=== PATIENT | female | born 1945 | race Caucasian/White ===

== ENCOUNTER 2020-03-13 10:24 | Emergency (ER) | payer MEDICARE ==
[~2020-03-13] VITALS: Ht 162.6 cm; Wt 70.3 kg
--- OUTSIDE RECORDS SUMMARY | ~2020-03-13 | XMS | Encounter Summary ---
Demographics + + + | Address | [address] | | | [place] [address] | + + + | Home Phone | | + + + | Preferred Language | Unknown | + + + | Marital Status | Single | + + + | Confucianist Affiliation | Unknown | + + + | Race | White | + + + | Ethnic Group | Not or | + + + Author + + + | Author | [facility] | | | and [place] | + + + | Organization | [facility] | | | and [place] | + + + | Address | Unknown | + + + | Phone | Unavailable | + + + Support + + +---------+ + | Name | Relationship | Address | Phone | + + +---------+ + | Ramon Turner | ECON | Unknown | | + + +---------+ + Care Team Providers + +------+ + | Care High School Foreign Language Teacher Name | Role | Phone | + +------+ + PCP | Unavailable | + +------+ + Encounter Details +--------+ + + + + | Date | Type | Department | Care Team | Description | +--------+ + + + + | 11/23/ | Hospital | [facility] | Kaitlyn Slater | | | 2012 | Encounter | [facility] | MD [place] [address] | | | | | [address] | [place] | | | | [address] [place], | [address] | | | | | [place] [address] | [phone] | | | | | [phone] | | | +--------+ + + + + Social History + +-------+ +--------+------+ | Tobacco Use | Types | Packs/Day | Years | Date | | | | | Used | | + +-------+ +--------+------+ | Never Assessed | | | | | + +-------+ +--------+------+ + + + | Sex Assigned at | Date Recorded | | | | + + + | Not on file | | + + + documented as of this encounter Plan of Treatment Not on filedocumented as of this encounter Visit Diagnoses Not on filedocumented in this encounter"
--- OUTSIDE RECORDS SUMMARY | ~2020-03-13 | XMS | Encounter Summary ---
Demographics + + + | Address | [address] | | | [place] [address] | + + + | Home Phone | | + + + | Preferred Language | Unknown | + + + | Marital Status | Single | + + + | Anabaptist Affiliation | Unknown | + + + | Race | White | + + + | Ethnic Group | Not or | + + + Author + + + | Author | [facility] | | | and [place] | + + + | Organization | [facility] | | [...] Team Providers + +------+ + | Care Brick Picker Name | Role | Phone | + +------+ + PCP | Unavailable | + +------+ + Encounter Details +--------+ + + + + | Date | Type | Department | Care Team | Description | +--------+ + + + + | 12/07/ | Hospital | [facility] | Pito Hastings | | | 2015 | Encounter | [facility] OP | [address] | | | | | [address] [place] | [address] | | | | | [place], [place] | [place] [address] | | | | | [address] | [phone] | | | | | [phone] | | | +--------+ + + + [...]
--- OUTSIDE RECORDS SUMMARY | ~2020-03-13 | XMS | Encounter Summary ---
Demographics + + + | Address | [address] | | | [place] [address] | + + + | Home Phone | | + + + | Preferred Language | Unknown | + + + | Marital Status | Single | + + + | Hinduism Affiliation | Unknown | + + + | Race | White | + + + | Ethnic Group | Not or | + + + Author + + + | Author | [facility] | | | and [place] | + + + | Organization | [facility] | | | and [...] Team Providers + +------+ + | Care Creative/Art Director Name | Role | Phone | + +------+ + PCP | Unavailable | + +------+ + Encounter Details +--------+ + + + + | Date | Type | Department | Care Team | Description | +--------+ + + + + | 01/13/ | Hospital | [facility] | Kaitlyn Slater | | | 2011 | Encounter | [facility]ORY | MD [place] [address] | | | | | [address] [place] | [place] | | | | | [place] | [address] | | | | | [address] | [phone] | | | | | [phone] | | | +--------+ + + + [...]
--- OUTSIDE RECORDS SUMMARY | ~2020-03-13 | XMS | Encounter Summary ---
Demographics + + + | Address | [address] | | | [place] [address] | + + + | Home Phone | | + + + | Preferred Language | Unknown | + + + | Marital Status | Single | + + + | Buddhism Affiliation | Unknown | + + + | Race | White | + + + | Ethnic Group | Not or | + + + Author + + + | Author | [facility] | | | and [place] | + + + | Organization | [facility] | | | [...] Team Providers + +------+ + | Care L D Rn Name | Role | Phone | + +------+ + PCP | Unavailable | + +------+ + Encounter Details +--------+ + + + + | Date | Type | Department | Care Team | Description | +--------+ + + + + | 12/25/ | Hospital | [facility] | Kaitlyn Slater | | | 2013 | Encounter | [facility] | MD [place] [address] | | | | | [address] [place] | [place] | | | | | [place] | [address] | | | | | [address] | [phone] | | | | | [phone] | | | +--------+ + + + [...] Not on filedocumented as of this encounter Procedures + +--------+ + + + | Procedure Name | Priori | Date/Time | Associated Diagnosis | Comments | | | ty | | | | + +--------+ + + + | CBC W/AUTO | Routin | 12/25/2013 | | Results for this | | DIFFERENTIAL | e | 12:01 PM | | procedure are in the | | | | PDT | | results section. | + +--------+ + + + | LIPASE | Routin | 12/25/2013 | | Results for this | | | e | 12:01 PM | | procedure are in the | | | | PDT | | results section. | + +--------+ + + + | COMPREHENSIVE | Routin | 12/25/2013 | | Results for this | | METABOLIC PANEL | e | 12:01 PM | | procedure are in the | | | | PDT | | results section. | + +--------+ + + + documented in this encounter Results CBC w/ Auto Differential (12/25/2013 12:01 PM PDT) + +-------+ + + + | Component | Value | Ref Range | Performed | Pathologist | | | | | At | Signature | + +-------+ + + + | WBC | 8.5 | 4.3 - 10.4 | EXTERNAL | | | | | 1000/mm3 | LAB | | + +-------+ + + + | RBC | 4.04 | 4.12 - 5.30 | EXTERNAL | | | | | mil/mm3 | LAB | | + +-------+ + + + | HGB, | 13.7 | 12.4 - 15.7 | EXTERNAL | | | External | | g/dL | LAB | | + +-------+ + + + | HCT, | 39.3 | 37.7 - 47.0 % | EXTERNAL | | | External | | | LAB | | + +-------+ + + + | MCV | 97 | 82 - 97 fl | EXTERNAL | | | | | | LAB | | + +-------+ + + + | MCH | 33.9 | 27.1 - 32.3 pg | EXTERNAL | | | | | | LAB | | + +-------+ + + + | MCHC | 34.9 | 32.0 - 36.9 | EXTERNAL | | | | | g/dL | LAB | | + +-------+ + + + | RDW-CV | 12.5 | <=17.0 % | EXTERNAL | | | | | | LAB | | + +-------+ + + + | Platelet | 209 | 150 - 450 | EXTERNAL | | | Count | | 1000/mm3 | LAB | | | Plasma | | | | | + +-------+ + + + | MPV | 10.1 | 9.4 - 12.3 FL | EXTERNAL | | | | | | LAB | | + +-------+ + + + | % Segmented | 74.4 | 42.0 - 76.0 % | EXTERNAL | | | | | | LAB | | | Neutrophils | | | | | + +-------+ + + + | LYMPH % | 17 | 29.0 - 49.0 % | EXTERNAL | | | | | | LAB | | + +-------+ + + + | % Monocytes | 8.6 | <=12.0 % | EXTERNAL | | | | | | LAB | | + +-------+ + + + | Absolute | 6.4 | 2.50 - 8.50 | EXTERNAL | | | Neutrophils | | 1000/mm3 | LAB | | + +-------+ + + + | Absolute | 1.4 | 1.00 - 3.80 | EXTERNAL | | | Lymphocytes | | 1000/mm3 | LAB | | + +-------+ + + + | Absolute | 0.7 | <=1.25 1000/mm3 | EXTERNAL | | | Monocytes | | | LAB | | + +-------+ + + + | SLIDE | NO | | EXTERNAL | | | REVIEW | | | LAB | | + +-------+ + + + + + | Specimen | + + | | + + + +---------+ + + | Performing | Address | City/State/Zipcode | Phone Number | | Organization | | | | + +---------+ + + | EXTERNAL LAB | | | | + +---------+ + + Lipase (12/25/2013 12:01 PM PDT) + +-------+ + + + | Component | Value | Ref Range | Performed | Pathologist | | | | | At | Signature | + +-------+ + + + | Lipase | 109 | 73 - 393 U/L | EXTERNAL | | | | | | LAB | | + +-------+ + + + + + | Specimen | + + | | + + + +---------+ + + | Performing | Address | City/State/Zipcode | Phone Number | | Organization | | | | + +---------+ + + | EXTERNAL LAB | | | | + +---------+ + + Comprehensive Metabolic Panel (12/25/2013 12:01 PM PDT) + +-------+ + + + | Component | Value | Ref Range | Performed | Pathologist | | | | | At | Signature | + +-------+ + + + | Sodium | 139 | 132 - 143 | EXTERNAL | | | | | mmol/L | LAB | | + +-------+ + + + | Potassium | 4 | 3.3 - 4.9 | EXTERNAL | | | | | mmol/L | LAB | | + +-------+ + + + | Cl | 100 | 95 - 108 mmol/L | EXTERNAL | | | | | | LAB | | + +-------+ + + + | CO2 | 29 | 23 - 34 mmol/L | EXTERNAL | | | | | | LAB | | + +-------+ + + + | Anion Gap | 10 | 7 - 16 | EXTERNAL | | | | | | LAB | | + +-------+ + + + | Calcium | 10.1 | 8.3 - 10.0 | EXTERNAL | | | | | mg/dL | LAB | | + +-------+ + + + | Glucose | 99 | 70 - 110 mg/dL | EXTERNAL | | | | | | LAB | | + +-------+ + + + | BUN, Bld | 16 | 5 - 26 mg/dL | EXTERNAL | | | | | | LAB | | + +-------+ + + + | Creatinine | 0.8 | 0.6 - 1.3 mg/dL | EXTERNAL | | | | | | LAB | | + +-------+ + + + | BUN/Creatin | 20 | 7.0 - 24.0 | EXTERNAL | | | ine Ratio | | RATIO | LAB | | + +-------+ + + + | GFR | 60 | >=60 | EXTERNAL | | | ESTIMATE | | mL/min/1.73m2 | LAB | | | (REF) | | | | | + +-------+ + + + | Bilirubin, | 0.7 | <=1.2 mg/dL | EXTERNAL | | | Total | | | LAB | | + +-------+ + + + | Protein, | 7.8 | 6.6 - 8.5 g/dL | EXTERNAL | | | Total | | | LAB | | + +-------+ + + + | Albumin | 4 | 3.0 - 4.5 g/dL | EXTERNAL | | | | | | LAB | | + +-------+ + + + | Alkaline | 102 | 33 - 151 U/L | EXTERNAL | | | Phosphatase | | | LAB | | + +-------+ + + + | ALT, | 37 | 18 - 63 U/L | EXTERNAL | | | External | | | LAB | | + +-------+ + + + | AST, | 25 | <=38 U/L | EXTERNAL | | | External | | | LAB | | + +-------+ + + + + + | Specimen | + + | | + + + +---------+ + + | Performing | Address | City/State/Zipcode | Phone Number | | Organization | | | | + +---------+ + + | EXTERNAL LAB | | | | + +---------+ + + documented in this encounter Visit Diagnoses Not on filedocumented in this encounter"
--- OUTSIDE RECORDS SUMMARY | ~2020-03-13 | XMS | Encounter Summary ---
Demographics + + + | Address | [address] | | | [place] [address] | + + + | Home Phone | | + + + | Preferred Language | Unknown | + + + | Marital Status | Single | + + + | Anabaptism Affiliation | Unknown | + + + [...] Team Providers + +------+ + | Care Crime Specialist Name | Role | Phone | + +------+ + PCP | Unavailable | + +------+ + Encounter Details +--------+ + + + + | Date | Type | Department | Care Team | Description | +--------+ + + + + | 12/25/ | Hospital | [facility] | Kaitlyn Slater | | | 2013 | Encounter | [facility] | MD [place] [address] | | | | | [address] | [place] | | | | | [address] [place], | [address] | | | | | [place] [address] | [phone] | | | | | [phone] | | | +--------+ + + + [...]
--- OUTSIDE RECORDS SUMMARY | ~2020-03-13 | XMS | Encounter Summary ---
Demographics + + + | Address | [address] | | | [place] [address] | + + + | Home Phone | | + + + | Preferred Language | Unknown | + + + | Marital Status | Single | + + + | Evangelical Affiliation | Unknown | + + + | Race | White | + + + | Ethnic Group | Not or | + + + Author + + + | Author | [facility] | | | and [place] | + + + | Organization | [facility] | | | [...] Team Providers + +------+ + | Care Knife Setter Assembler Name | Role | Phone | + +------+ + PCP | Unavailable | + +------+ + Encounter Details +--------+ + + + + | Date | Type | Department | Care Team | Description | +--------+ + + + + | 01/28/ | Hospital | [facility] | Kaitlyn Slater | | | 2013 | Encounter | H[facility] XRAY 900 | MD [place] [address] | | | | | [place] | [place] | | | | | [place] | [address] | | | | | [address] | [phone] | | | | | [phone] | | | +--------+ + + + [...]
--- OUTSIDE RECORDS SUMMARY | ~2020-03-13 | XMS | Encounter Summary ---
Demographics + + + | Address | [address] | | | [place] [address] | + + + | Home Phone | | + + + | Preferred Language | Unknown | + + + | Marital Status | Single | + + + | Restorationism Affiliation | Unknown | + + + | Race | White | + + + | Ethnic Group | Not or | + + + Author + + + | Author | [facility] | | | and [place] | + + + | Organization | [facility] | | | [...] Team Providers + +------+ + | Care Ladies Attendant Name | Role | Phone | + +------+ + PCP | Unavailable | + +------+ + Encounter Details +--------+ + + + + | Date | Type | Department | Care Team | Description | +--------+ + + + + | 01/22/ | Hospital | [facility] | Kaitlyn Slater | | | 2013 | Encounter | [facility] | MD [place] [address] | | | | | [address] | [place] | | | | | [address] [place], | [address] | | | | | [place] [address] | [phone] | | | | | [phone] | | | +--------+ + + + [...]
--- OUTSIDE RECORDS SUMMARY | ~2020-03-13 | XMS | Encounter Summary ---
Demographics + + + | Address | [address] | | | [place] [address] | + + + | Home Phone | | + + + | Preferred Language | Unknown | + + + | Marital Status | Single | + + + | Latter Day Affiliation | Unknown | + + + | Race | White | + + + | Ethnic Group | Not or | + + + Author + + + | Author | [facility] | | | and [place] | + + + | Organization | [facility] | | | [...] Team Providers + +------+ + | Care Mold Sander Name | Role | Phone | + +------+ + PCP | Unavailable | + +------+ + Encounter Details +--------+ + + + + | Date | Type | Department | Care Team | Description | +--------+ + + + + | 09/10/ | Hospital | [facility] | Kaitlyn Slater | | | 2014 | Encounter | [facility] | MD [place] [address] | | | | | [address] | [place] | | | | | [address] [place], | [address] | | | | | [place] [address] | [phone] | | | | | [phone] | | | +--------+ + + + [...]
--- OUTSIDE RECORDS SUMMARY | ~2020-03-13 | XMS | Encounter Summary ---
Demographics + + + | Address | [address] | | | [place] [address] | + + + | Home Phone | | + + + | Preferred Language | Unknown | + + + | Marital Status | Single | + + + | Mormonism Affiliation | Unknown | + + + | Race | White | + + + | Ethnic Group | Not or | + + + Author + + + | Author | [facility] | | | and [place] | + + + | Organization | [facility] | | [...] Team Providers + +------+ + | Care Oil Derrick Operator Name | Role | Phone | + +------+ + PCP | Unavailable | + +------+ + Encounter Details +--------+ + + + + | Date | Type | Department | Care Team | Description | +--------+ + + + + | 01/17/ | Hospital | [facility] | Kaitlyn Slater | | | 2012 | Encounter | H[facility]PITAL LAB[facility]ORY | MD [place] [address] | | | | | [address] [place] | [place] | | | | | [place] | [address] | | | | | [address] | [phone] | | | | | [phone] | | | +--------+ + + + [...]
--- OUTSIDE RECORDS SUMMARY | ~2020-03-13 | XMS | Encounter Summary ---
Demographics + + + | Address | [address] | | | [place] [address] | + + + | Home Phone | | + + + | Preferred Language | Unknown | + + + | Marital Status | Single | + + + | Methodist Affiliation | Unknown | + + + | Race | White | + + + | Ethnic Group | Not or | + + + Author + + + | Author | [facility] | | | and [place] | + + + | Organization | [facility] | | [...] Team Providers + +------+ + | Care Storage Consultant Name | Role | Phone | + +------+ + PCP | Unavailable | + +------+ + Encounter Details +--------+ + + + + | Date | Type | Department | Care Team | Description | +--------+ + + + + | 11/23/ | Hospital | [facility] | Pito Hastings | | | 2015 | Encounter | [facility] INTRA OP | MD [address] | | | | | [address] [place] | [address] | | | | | [place], [place] | [place] [address] | | | | | [address] | [phone] | | | | | [phone] | | | +--------+ + + + [...]
--- OUTSIDE RECORDS SUMMARY | ~2020-03-13 | XMS | Encounter Summary ---
Demographics + + + | Address | [address] | | | [place] [address] | + + + | Home Phone | | + + + | Preferred Language | Unknown | + + + | Marital Status | Single | + + + | Shinto Affiliation | Unknown | + + + | Race | White | + + + | Ethnic Group | Not or | + + + Author + + + | Author | [facility] | | | and [place] | + + + | Organization | [facility] | | | [...] Team Providers + +------+ + | Care Jewelry Bearing Maker Name | Role | Phone | + +------+ + PCP | Unavailable | + +------+ + Encounter Details +--------+ + + + + | Date | Type | Department | Care Team | Description | +--------+ + + + + | 12/01/ | Hospital | [facility] | Dwayne Tafoya FNP | | | 2012 | Encounter | [facility] | [address] | | | | | MEDICAL [address] | [place], [place] | | | | | [address] [facility], | [address] | | | | | [place] [address] | [phone] | | | | | [phone] | | | +--------+ + + + [...]
--- OUTSIDE RECORDS SUMMARY | ~2020-03-13 | XMS | Encounter Summary ---
Demographics + + + | Address | [address] | | | [place] [address] | + + + | Home Phone | | + + + | Preferred Language | Unknown | + + + | Marital Status | Single | + + + | Voodoo Affiliation | Unknown | + + + | Race | White | + + + | Ethnic Group | Not or | + + + Author + + + | Author | [facility] | | | and [place] | + + + | Organization | [facility] | | [...] Team Providers + +------+ + | Care Results Technician Name | Role | Phone | + +------+ + PCP | Unavailable | + +------+ + Encounter Details +--------+ + + + + | Date | Type | Department | Care Team | Description | +--------+ + + + + | 01/20/ | Hospital | [facility] | Kaitlyn Slater | | | 2014 | Encounter | [facility] | MD [place] [address] | | | | | [address] | [place] | | | | | [address] [place], | [address] | | | | | [place] [address] | [phone] | | | | | [phone] | | | +--------+ + + + [...]
--- OUTSIDE RECORDS SUMMARY | ~2020-03-13 | XMS | Encounter Summary ---
Demographics + + + | Address | [address] | | | [place] [address] | + + + | Home Phone | | + + + | Preferred Language | Unknown | + + + | Marital Status | Single | + + + | Jehovah'S Witness Affiliation | Unknown | + + + | Race | White | + + + | Ethnic Group | Not or | + + + Author + + + | Author | [facility] | | | and [place] | + + + | Organization | [facility] | | [...] Team Providers + +------+ + | Care Music Critic Name | Role | Phone | + +------+ + PCP | Unavailable | + +------+ + Encounter Details +--------+ + + + + | Date | Type | Department | Care Team | Description | +--------+ + + + + | 09/25/ | Hospital | [facility] | Evie Gama | | | 2012 | Encounter | [facility] | [address] | | | | | [address] [place] | [place] | | | | | [place] | [place], [place] | | | | | [address] | [address] | | | | | [phone] | [phone] | | | | | | | | +--------+ + + + [...]
--- OUTSIDE RECORDS SUMMARY | ~2020-03-13 | XMS | Encounter Summary ---
Demographics + + + | Address | [address] | | | [place] [address] | + + + | Home Phone | | + + + | Preferred Language | Unknown | + + + | Marital Status | Single | + + + | Congregation Affiliation | Unknown | + + + | Race | White | + + + | Ethnic Group | Not or | + + + Author + + + | Author | [facility] | | | and [place] | + + + | Organization | [facility] | | | and [...] Team Providers + +------+ + | Care Planning And Analysis Manager Name | Role | Phone | + +------+ + PCP | Unavailable | + +------+ + Encounter Details +--------+ + + + + | Date | Type | Department | Care Team | Description | +--------+ + + + + | 01/11/ | Hospital | [facility] | Roldan Croft MD | | | 2011 | Encounter | [facility] | [address] | | | | | [address] | [place], [place] | | | | | [address] [place], | [address] | | | | | [place] [address] | | | | | | [phone] | | | +--------+ + + + [...]
--- OUTSIDE RECORDS SUMMARY | ~2020-03-13 | XMS | Clinical Summary ---
Demographics + + + | Address | [address] | | | [place] [address] | + + + | Home Phone | | + + + | Preferred Language | Unknown | + + + | Marital Status | Single | + + + | Tenriism Affiliation | Unknown | + + + | Race | White | + + + | Ethnic Group | Not or | + + + Author + + + | Author | [facility] | | | and [place] | + + + | Organization | [facility] | | [...] Team Providers + +------+ + | Care Linen Tech Name | Role | Phone | + +------+ + PCP | Unavailable | + +------+ + Allergies Not on File Medications Not on file Active Problems Not on file Social History + +-------+ +--------+------+ | Tobacco [...] on file | | + + + Last Filed Vital Signs + + + + + | Vital Sign | Reading | Time Taken | Comments | + + + + + | Blood Pressure | 104/58 | 01/20/2015 1:01 PM | | | | | PDT | | + + + + + | Pulse | 80 | 01/20/2015 1:01 PM | | | | | PDT | | + + + + + | Temperature | 35.9 C (96.6 F) | 01/20/2015 1:01 PM | | | | | PDT | | + + + + + | Respiratory Rate | 18 | 01/20/2015 1:01 PM | | | | | PDT | | + + + + + | Oxygen Saturation | 96% | 01/20/2015 1:01 PM | | | | | PDT | | + + + + + | Inhaled Oxygen | - | - | | | Concentration | | | | + + + + + | Weight | 67.6 kg (149 lb) | 01/20/2015 1:01 PM | | | | | PDT | | + + + + + | Height | 162.6 cm (5' 4") | 01/20/2015 1:01 PM | | | | | PDT | | + + + + + | Body Mass Index | 25.58 | 01/20/2015 1:01 PM | | | | | PDT | | + + + + + Plan of Treatment + + +-------+ + | Health Maintenance | Due Date | Last | Comments | | | | Done | | + + +-------+ + | Vaccine: | | | | | Dtap/Tdap/Td (1 - | 4 | | | | Tdap) | | | | + + +-------+ + | Vaccine: Zoster (1 | | | | | of 2) | 5 | | | + + +-------+ + | Breast Cancer | | | | | Screening | 0 | | | + + +-------+ + | Vaccine: | | | | | Pneumococcal 65+ (1 | 0 | | | | of 1 - PPSV23) | | | | + + +-------+ + | Vaccine: Influenza | | | | | (#1) | 0 | | | + + +-------+ + Results Not on filefrom Last 3 Months
[2020-03-13] MEDS ORDERED: FLUOXETINE HCL20 MG PO (10:43)
[2020-03-13] MEDS ORDERED: LISINOPRIL20 MG PO (10:43)
== END 2020-03-13 12:07 | disposition home or self-care (01) ==
LOC: ED 10:24
DX: S13.4XXA Sprain of ligaments of cervical spine, initial encounter (principal); I10 Essential (primary) hypertension; F32.9 Major depressive disorder, single episode, unspecified; Z79.899 Other long term (current) drug therapy; W19.XXXA Unspecified fall, initial encounter
CPT/HCPCS: 72125; 99284-25

== ENCOUNTER 2021-02-25 11:08 | Day surgery (SDC) | payer MEDICARE ==
[~2021-02-25] VITALS: Ht 162.6 cm; Wt 70.0 kg
[~2021-02-25 11:08] MED LIST: FLUOXETINE HCL20 MG PO; LISINOPRIL20 MG PO
--- NOTE | 2021-02-25 13:41 | NUR ---
02/25/21 1341 Billie Fall 1219 PT ARRIVED IN PACU SLEEPY WITH NO C/O'S. REPOSITIONED TO L SIDE FOR COMFORT. 1225 REPOSITIONED TO BACK AND SITTING UP IN BED. 1230 SIPPING ON JUICE. 1245 GETTING DRESSED. NO C/O'S. 1250 DC INSTRUCTIONS GIVEN. ALL QUESTIONS ANSWERED.
--- NOTE | 2021-03-09 13:54 | PATH ---
[facility] [address], [place] [address] Signed THIS IS AN ADDENDUM REPORT SPECIMEN(S): A BONE MARROW - CORE SPECIMEN(S): B BONE MARROW - ASPIRATION SPECIMEN(S): C FLOW CYTOMETRY, BM EDTA ASP CLINICAL HISTORY: 75-year-old female with chronic leukopenia, macrocytosis and abnormal bone marrow signal on MRI. See attached. D46.9 (myelodysplastic syndrome, unspecified) DIAGNOSIS SUMMARY: A. Peripheral blood - Macrocytosis. B. Bone marrow aspirate smears, clot section and core biopsy: - Slightly hypercellular bone marrow with trilineage hematopoiesis. - Negative for morphologic features of myelodysplastic syndrome (MDS). - Negative for morphologic features of myeloproliferative neoplasm (MPN). - Negative for increase in plasma cells or infiltrative bone marrow process. - Please see diagnostic comment. DIAGNOSTIC COMMENT: The bone marrow core biopsy demonstrates slightly hypercellular bone marrow with progressive maturation. The bone marrow aspirate smears are hypocellular and suboptimal for morphologic evaluation. However, no increase in blasts or dyshematopoiesis is identified. Patient history of leukopenia and Macrocytosis is noted. Correlation with pending cytogenetic studies and MDS FISH will be helpful for further diagnosis. The results are pending and will be reported in an addendum. This case has been reviewed and dictated by Cassandra Landrum M.D.FACP, board certified hematopathologist. NA:vlg:C2NR PERIPHERAL BLOOD: HEMOGRAM ([facility]; [place], [place]; 02/24/2021): WBCs 3.9 K/uL, RBCs 3.84 K/uL, HGB 12.8 g/dL, HCT 38.2%, MCV 99.7 f/L, MCH 33.3 pg, RDW 13.2%, MCHC 33.4 g/dL, PLT 216 K/uL, and MPV 7.9 f/L. DIFFERENTIAL (manual): 54% neutrophils, 34% lymphocytes, 9% monocytes, 3% eosinophils. PATIENT NAME: SHALA PATTERSON PATHOLOGY DATE OF : 45 REPORT #: [id number] PHYSICIAN: GENNA PRESTON PCP: THANH VARGAS MD REPORT IS CONFIDENTIAL AND NOT TO BE RELEASED WITHOUT AUTHORIZATION [facility] [address], [place] [address] Signed Review of peripheral blood smear and CBC data demonstrate that the RBCs are slightly decreased in number and are macrocytic with no anemia present. Mild anisopoikilocytosis is present. No Rouleaux formation is present. The WBCs are slightly decreased in number with normal distribution. The neutrophils show unremarkable morphology. The platelets are normal in number and unremarkable in morphology. BONE MARROW: BONE MARROW ASPIRATES SMEARS AND TOUCH IMPRINTS: The bone marrow aspirate smears are hypocellular with no bone marrow particles present. Scattered hematopoietic elements are seen showing normal progressive hematopoiesis. No increase in blasts is noted. No dyshematopoiesis is identified. No increase in blasts is noted. Rare megakaryocytes are seen. BONE MARROW DIFFERENTIAL (100 CELLS): 2% blasts, 5% promyelocytes, 9% myelocytes, 47% segmented neutrophils, 5% lymphocytes, 5% monocytes, 2% eosinophils, 1% plasma cells, 24% erythroid precursors. BONE MARROW CORE BIOPSY AND CLOT SECTION: The bone marrow core biopsy and clot section demonstrate slightly hypercellular bone marrow for age with an averaging cellularity of 30%. Trilineage hematopoiesis is present with progressive ordinary maturation. There are no lymphoid aggregates, granulomas, or metastatic tumor cells present. The megakaryocytes are scattered and appear normal in number and distribution. The clot section shows rare clusters of hematopoietic elements with similar findings. SPECIAL STAINS: Special stains are performed (with appropriately reactive control) and show the following results: - Iron (aspirate smears): Stainable iron present, negative for ring sideroblasts. - Iron (clot section, block B1): Stainable iron present, negative for ring sideroblasts. - Reticulin stain (core biopsy): Mild increase in bone marrow reticulin fibrosis. IMMUNOHISTOCHEMICAL STAINS: Immunohistochemical stains are performed on block (A1) (with appropriately reactive control) and show the following results: - CD34: Highlights scattered cells with no increase in blasts noted. - CD117: Highlights scattered cells with no increase in blasts noted. - MPO: Highlights myeloid precursors with normal pattern of distribution. - CD71: Highlights erythroid precursors with normal pattern of distribution. PATIENT NAME: SHALA PATTERSON PATHOLOGY DATE OF : 45 REPORT #: [id number] PHYSICIAN: GENNA PATHOLOGY PCP: THANH VARGAS MD REPORT IS CONFIDENTIAL AND NOT TO BE RELEASED WITHOUT AUTHORIZATION [facility] [address], [place] [address] Signed - Factor VIII: Highlights megakaryocytes with normal number and distribution. FLOW CYTOMETRY: Bone marrow aspirate, flow cytometry: Minute population of monoclonal CD5-positive mature B-cell detected (<1%). No increase in blasts (1.4% myeloblasts). Normal myeloid maturation. See Comment. COMMENT: A minute population of CD5 positive kappa-restricted monotypic B-cell is detected (<1%). While this phenotype may be seen with chronic lymphocytic leukemia, the number of monoclonal B-cells is below the 2016 WHO criteria (greater than or equal to 5 K/uL) for a primary diagnosis of chronic lymphocytic leukemia. 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 Clinical and morphologic correlation is recommended. FLOW CYTOMETRY ANALYSIS: FLOW DIFFERENTIAL (% Total CD45 vs. SSC gating): Myeloid 75%; Lymphoid 10%; Monocyte 3%; Dim CD45/Blast: 1.4%. Cell Count: 2.6 x 10*3/uL. POPULATION ANALYSIS: BLASTS: Analysis of the dim CD45 gate demonstrates 1.4% myeloblasts by CD34/CD117. 1.6% hematogones are detected. LYMPHOID CELLS: The lymphocyte gate comprises 10% of total events and includes 82% T-cells with a CD4:CD8 ratio of 2.1:1 and normal fernando T-cell antigen expression. 7% of lymphocytes are B-cells. A minute kappa-restricted B-cell subset is detected (2% of lymphocytes, <1% of total events) expressing CD45 MOD, CD19 MOD, CD20 DIM, CD5 DIM and KAPPA DIM while negative for CD10, CD23 and FMC7. Due to the absence of CD23 expression, select additional antibodies are run to further characterize the Bcells. Expression of CD200 DIM (partial) is noted. The remainders are NK-cells. MYELOID CELLS: The myeloid population comprises 75% of the total events. No aberrant immunophenotypic expression is detected. MONOCYTES: The monocyte population comprises 3% of the total events. Monocytes are not increased. No aberrant immunophenotypic expression is detected. PLASMA CELLS: 0.6% plasma cells are detected in the screening gate neg-dimCD45/CD38. Plasma cells are CD45 dim and positive for CD19. Initial Antibodies Used: KAPPA, LAMBDA, CD20, CD10, CD19, CD23, CD38, FMC7, CD16, CD56, CD8, CD5, CD2, CD4, CD7, CD3, CD14, CD33, CD13, HLADR, CD34, CD117, CD15, CD45. PATIENT NAME: SHALA PATTERSON PATHOLOGY DATE OF : 45 REPORT #: [id number] PHYSICIAN: GENNA PRESTON PCP: THANH VARGAS MD REPORT IS CONFIDENTIAL AND NOT TO BE RELEASED WITHOUT AUTHORIZATION [facility] [address], [place] [address] Signed Additional Antibodies (necessary for further classification of B lymphocytes): CD200. Total Antibodies Used: 25. JNB GROSS DESCRIPTION: Two specimens are received in two containers, labeled "CC." A. The specimen, labeled "CC, core," is received in formalin and consists of one cylindrical bone core fragment measuring 0.3 cm in diameter and 2.6 cm in length. The specimen is entirely submitted in cassette (A1) following decalcification in Immunocal. B. The specimen, labeled "CC, clot," is received in formalin and consists of thickened clot material measuring 2.3 x 1.8 x 0.5 cm in aggregate. The specimen is filtered and entirely submitted in cassette (B1). Bone marrow inventory also includes: Two peripheral smears, one EDTA tube bone marrow, two heparin tubes (one bone marrow, one peripheral). AT (under the direct supervision of a pathologist) The Gross Description was prepared using a voice recognition system. The report was reviewed for accuracy; however, sound-alike word errors, addition and/or deletions may occur. If there is any question about this report, please contact Client Services. ADDITIONAL NOTES: Immunohistochemical and/or in situ hybridization studies were performed on this case with the appropriate positive controls that react as expected. This test was developed and its performance characteristics determined by [facility]. It has not been cleared or approved by the U.S. Food and Drug Administration. The FDA has determined that such clearance or approval is not necessary. This test is used for clinical purposes. It should not be regarded as investigational or for research. [facility] is certified under the Clinical Laboratory Improvement Amendments of 1988 (CLIA) as qualified to perform high complexity clinical laboratory testing. Immunohistochemical and/or in situ hybridization studies were performed on this case with the appropriate positive controls that react as expected. This test was developed and its performance characteristics determined by [facility]. It has not been cleared or approved by the U.S. Food and Drug Administration. The FDA has determined that PATIENT NAME: SHALA PATTERSON PATHOLOGY DATE OF : 45 REPORT #: [id number] PHYSICIAN: GENNA PATHOLOGY PCP: THANH VARGAS MD REPORT IS CONFIDENTIAL AND NOT TO BE RELEASED WITHOUT AUTHORIZATION [facility] [address] [place] [address] Signed such clearance or approval is not necessary. This test is used for clinical purposes. It should not be regarded as investigational or for research. [facility] is certified under the Clinical Laboratory Improvement Amendments of 1988 (CLIA) as qualified to perform high complexity clinical laboratory testing. In this case, certain antibodies were performed by both immunohistochemistry and flow cytometry analysis because flow cytometry analysis did not fully explain all the light microscopic findings. Immunohistochemistry aided in the analysis. Both methods are deemed medically necessary in this case. PERFORMING LABORATORY: The technical component was performed by [facility], [address] [place] [address] (Mechanic Senior: Martell Powell D.O.; CLIA#: [id number]. Professional interpretation was performed by [facility], [facility], [address] [place] [address] (CLIA#: [id number]). The technical component was performed by [facility], [address] [place] [address] (Mechanic Senior: Martell Powell D.O.; CLIA#: [id number]). [facility], [address] [place] [address] (CLIA#: [id number]) IMAGES: A: [id number] A: [id number] FINAL DIAGNOSIS PERFORMED BY: Cassandra Landrum MD, FACP, Feb 26 2021 12:27PM SPECIMEN SOURCE: A. FISH Analysis, MDS FISH, BM EDTA CLINICAL HISTORY: 75-year-old female with chronic leukopenia, macrocytosis and abnormal bone marrow signal on MRI. See attached. D46.9 (myelodysplastic syndrome, unspecified) FISH (fluorescence in situ hybridization) RESULT: Not Detected INTERPRETATION: 5q deletion/monosomy 5: Not detected. 7q deletion/monosomy 7: Not detected. Trisomy 8: Not detected. 20q deletion: Not detected. PATIENT NAME: SHALA PATTERSON PATHOLOGY DATE OF : 45 REPORT #: [id number] PHYSICIAN: GENNA PATHOLOGY PCP: THANH VARGAS MD REPORT IS CONFIDENTIAL AND NOT TO BE RELEASED WITHOUT AUTHORIZATION [facility] [address] [place] [address] [place], [place] [address] Signed KMT2A (MLL) rearrangement: Not detected. Fluorescence in situ hybridization (FISH) analysis was performed using a specific set of probes for myelodysplastic syndrome. Counts for all probe signals were within the normal reference range. This finding represents a NORMAL result. FISH should be interpreted within the context of a full cytogenetic analysis and hematologic evaluation. ISCN: Probe Set Detail: EGR1/E4J592: nuc karlos 5p15.31(H2F474p9), 5q31(EGR1x2)[200] A0N680/CEP7: nuc karlos 7q31(W7C175p4),7q11.2q11.21(CEP7x2)[200] CEP8: nuc karlos 8q11.1q11.21(CEP8x2)[200] E57E861: nuc karlos 20q12(Z31Q642b7)[200] KMT2A (MLL): nuc karlos 11q23(5'KMT2A,3'KMT2A)x2(5'KMT2A con 3'QGE7Cp4)[200] References: Gaye Reeder (2013) Hematology Am Soc Hematol Educ Program 2013:504-10. PMID [id number] Yuly Phan and Brady Eller (2011) Hematology 16(3):131-8. PMID: 79564490 FISH Analysis Summary: Nuclei Scored: 200 Scoring Method: Manual; CPT Code 65680 Number of Probe units: 4 Multiplex Cells analyzed: Interphase Probe sets: Chrom 8: PATRICK 8, Chrom 20: X80J274, Chrom 5: EGR1, Chrom 5: F3S840, Chrom 7: CEN7, Chrom 7: B1V0894, Chrom 11: KMT2A (MLL) 3', Chrom 11: KMT2A (MLL) 5 ADDITIONAL NOTES: This test was developed and its performance characteristics determined by [facility] [employer] It has not been cleared or approved by the US Food and Drug Administration. The [employer] DNA probe vendor for this study was [employer]. PERFORMING LABORATORY: The technical component of the FISH testing was performed by [facility], [address] [place], [place] [address] [address] (Mechanic Senior: Martell Powell D.O.; CLIA#: [id number]). FINAL DIAGNOSIS PERFORMED BY: Janis Dukes MD, Pathologist Mar 03 2021 2:56PM REASON FOR ADDENDUM: To add results of additional testing. To add results of additional testing. PATIENT NAME: SHALA PATTERSON PATHOLOGY DATE OF : 45 REPORT #: [id number] PHYSICIAN: GENNA PATHOLOGY PCP: THANH VARGAS MD REPORT IS CONFIDENTIAL AND NOT TO BE RELEASED WITHOUT AUTHORIZATION [address] [address] Signed Bone marrow aspirate, cytogenetics oncology chromosome analysis: Karyotype: 46,XX,del(9)(q13q22)[2]/46,XX[19] Interpretation: ABNORMAL FEMALE KARYOTYPE Cytogenetic analysis shows an abnormal female karyotype. 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 Nineteen remaining cells show a normal karyotype. Deletion of the long arm of chromosome 9, del(9q), as a sole chromosome abnormality is typically associated with myeloid neoplasms, such as myelodysplastic syndrome (MDS), and usually confers a relatively good prognosis (Yara Gomez et al: New insights into the prognostic impact of the karyotype in MDS and correlation with subtypes: evidence from a core dataset of 2124 patients. Blood 2007;110:2734-0747). These results should be interpreted in the context of other clinical and hematologic findings. Please note this is the minimal number of cells required to define a "clone." Future studies should determine the significance, if any, of this change. Recommendation: Monitoring by cytogenetics, FISH and/or molecular studies is recommended. Comments: Standard cytogenetic analysis may not detect subtle submicroscopic rearrangements and may not include metaphases from abnormal cell populations with low mitotic rates or present in low levels. Test Detail: Metaphases Counted: 21 Metaphases Analyzed: 21 Metaphases Karyotyped: 4 Culture Type: 24EB, 48EB Banding Technique: GTG Banding Resolution: 400 CPT Codes: 05043, 22208, 47228*, 08778 *Professional interpretation service generally billed directly to carriers by [facility]. The Technical Component Processing and Analysis of this test was completed at [facility] [address] / [address] / [phone] / CLIA #[id number] / Mechanic Senior(s): Iam Copeland M.D.. The Professional Component of this test was completed at [facility] [place], [address] [place], [place] / [address] / [phone] / CLIA #[id number] / Mechanic Senior(s): Froylan Snowden, Ph.D. (Accession / Case No: [id number] / [id number]). The performance characteristics of this test have been PATIENT NAME: SHALA PATTERSON PATHOLOGY DATE OF : 45 REPORT #: [id number] PHYSICIAN: GENNA PRESTON PCP: THANH VARGAS MD REPORT IS CONFIDENTIAL AND NOT TO BE RELEASED WITHOUT AUTHORIZATION [address] [address] Signed determined by the performing laboratory. This test has not been approved by the FDA. The FDA has determined such clearance or approval is not necessary. This laboratory is CLIA certified to perform high complexity clinical testing. Images that may be included within this report are contracts representative of the patient but not all testing in its entirety and should not be used to render a result. The CPT codes provided with our test descriptions are based on AMA guidelines and are for informational purposes only. Correct CPT coding is the sole responsibility of the billing alliance party. Please direct any questions regarding coding to the payer being billed. Diagnostician: Janis Dukes MD Pathologist Diagnostician: Cassandra Landrum MD, FACP Pathologist Electronically Signed 03/09/2021 Copies: ~ PATIENT NAME: SHALA PATTERSON PATHOLOGY DATE OF : 45 REPORT #: [id number] PHYSICIAN: GENNA PATHOLOGY PCP: THANH VARGAS MD REPORT IS CONFIDENTIAL AND NOT TO BE RELEASED WITHOUT AUTHORIZATION
== END 2021-02-25 12:50 | disposition home or self-care (01) ==
LOC: OPS 11:08 → DS 11:11 → OPS 12:00
PROVIDERS: ATTEND Specialist
PROC: 07DR3ZX Extraction of Iliac Bone Marrow, Percutaneous Approach, Diagnostic (ICD-10-PCS; principal; 2021-02-25 12:00)
DX: D72.819 Decreased white blood cell count, unspecified (principal); D75.89 Other specified diseases of blood and blood-forming organs; Z20.822 Contact with and (suspected) exposure to COVID-19
CPT/HCPCS: 88184; 88185; 88305; 88311; 88313; 88341; 88342; 88377; 99153; G0500; J2250; J3010

== ENCOUNTER 2023-05-31 07:44 | Emergency (ER) | payer MEDICARE ==
[2023-05-31 08:25] LABS: BILIRUBIN, URINE NEGATIVE (negative); BLOOD/HGB, URINE MODERATE (Negative); KETONE, URINE TRACE (Negative); LEUK ESTERASE, URINE TRACE (negative); NITRITE, URINE NEGATIVE (negative); PH, URINE 5.5 (5-7)
[2023-05-31 08:32] LABS: BASOPHILS 0.5 % (0-2); EOSINOPHILS 2.8 % (0-6); HEMATOCRIT 39.3 % (35.0-50.0); HEMOGLOBIN 13.1 g/dL (12.0-18.0); MCH 33.2 (27-36); MCHC 33.3 g/dl (30-36); MCV 99.5 fl (81-99); MONOCYTES 10.2 % (0-12); NEUTROPHILS 48.5 % (39-80); PLATELET COUNT 223 K/uL (140-440); RBC 3.95 M/ul (4.3-5.7); RDW 13.4 (10.5-15.0)
[2023-05-31 08:37] LABS: EPITHELIAL CELLS, URINE SQUAMOUS 1+ /lpf (0-1+); REFLEX CULTURE, URINE No (No); WHITE BLOOD CELLS, URINE 0-1 /HPF (0-5)
[2023-05-31 08:38] LABS: CASTS, URINE HYALINE 1+ \\lpf
[2023-05-31 08:44] LABS: ALBUMIN 4.2 g/dL (3.4-5.0); ALBUMIN/GLOBULIN RATIO 1.08 (1.1-2.4); ANION GAP 13.4 (7-21); BILIRUBIN, TOTAL 0.6 ng/dL (0.2-1.0); BUN/CREATININE RATIO 13.58 (6.0-28.6); CALCIUM 9.6 mg/dL (8.5-10.1); CREATININE, SERUM 0.81 mg/dL (0.55-1.02); POTASSIUM 3.4 mmol/L (3.5-5.1); PROTEIN, TOTAL 8.1 g/dL (6.4-8.2)
[2023-05-31] MEDS ORDERED: SUCRALFATE1 GM/10 ML PO (10:11)
[2023-05-31 10:27] VITALS: BP 136/75
== END 2023-05-31 10:23 | disposition home or self-care (01) ==
LOC: ED 07:44
PROVIDERS: Emergency Medicine
DX: K44.9 Diaphragmatic hernia without obstruction or gangrene (principal); R19.7 Diarrhea, unspecified; N28.9 Disorder of kidney and ureter, unspecified; I10 Essential (primary) hypertension; F32.A Depression, unspecified; Z79.899 Other long term (current) drug therapy
CPT/HCPCS: 36415; 74177; 80053; 81001; 83690; 85025; Q9967

== ENCOUNTER 2024-07-18 19:07 | Emergency (ER) | payer OTHER, MEDICARE ==
[~2024-07-18] VITALS: Ht 162.6 cm; Wt 70.0 kg
[~2024-07-18 19:07] MED LIST changes: +SUCRALFATE1 GM/10 ML PO
[2024-07-18] MEDS ORDERED: DULOXETINE HCL20 MG PO (20:07)
[2024-07-18] MEDS ORDERED: LISINOPRIL20 MG PO (20:07)
[2024-07-18] MEDS ORDERED: ALENDRONATE SOD70 MG PO (20:08)
[2024-07-18] MEDS ORDERED: HYDROCODON-ACE1 EA10 PO (20:27)
[2024-07-18] MEDS ORDERED: HYDROCODONE BIT/ACETAMINOPHEN 5/325 MG 1 TAB HOME.PACK PO ONE (20:30)
[2024-07-18 21:25] VITALS: BP 137/63
== END 2024-07-18 21:25 | disposition home or self-care (01) ==
LOC: ED 19:07
DX: S52.521A Torus fracture of lower end of right radius, initial encounter for closed fracture (principal); I10 Essential (primary) hypertension; Z79.83 Long term (current) use of bisphosphonates; Z79.899 Other long term (current) drug therapy; W10.8XXA Fall (on) (from) other stairs and steps, initial encounter
CPT/HCPCS: 29125; 73110; 99283-25; A9270

== ENCOUNTER 2024-11-07 06:07 | Emergency (ER) | payer MEDICARE ==
[~2024-11-07] VITALS: Ht 162.6 cm; Wt 72.0 kg
[~2024-11-07 06:07] MED LIST changes: +ALENDRONATE SOD70 MG PO; +DULOXETINE HCL20 MG PO; +HYDROCODON-ACE1 EA10 PO
[2024-11-07] MEDS ORDERED: OMEPRAZOLE20 MG PO (06:17)
[2024-11-07] MEDS ORDERED: METOPROLOL SUCC25 MG PO (06:17)
[2024-11-07] MEDS ORDERED: ASPIRIN81 MG PO (06:18)
[2024-11-07] MEDS ORDERED: HYDROCODON-ACE1 EA10 PO (06:41)
[2024-11-07] MEDS ORDERED: HYDROCODONE BIT/ACETAMINOPHEN 5/325 MG 1 TAB HOME.PACK PO ONE (06:45)
[2024-11-07 06:59] VITALS: BP 167/94
== END 2024-11-07 07:00 | disposition home or self-care (01) ==
LOC: ED 06:07
DX: S52.522A Torus fracture of lower end of left radius, initial encounter for closed fracture (principal); S52.612A Displaced fracture of left ulna styloid process, initial encounter for closed fracture; I10 Essential (primary) hypertension; Z79.82 Long term (current) use of aspirin; Z79.899 Other long term (current) drug therapy; W01.0XXA Fall on same level from slipping, tripping and stumbling without subsequent striking against object, initial encounter
CPT/HCPCS: 73110; 99283; A9270

== ENCOUNTER 2024-11-12 09:14 | Day surgery (SDC) | payer MEDICARE ==
[~2024-11-12] VITALS: Ht 162.6 cm; Wt 70.9 kg
[~2024-11-12 09:14] MED LIST changes: +ASPIRIN81 MG PO; +CEFAZOLIN SODIUM 2 GM/20 ML SYR IV SCH; +DEXAMETHASONE SOD PHOS 4 MG/ML VIAL ONE; +IBLOOD GLUCOSE TEST STRIP 1 EA TEST VI PRN; +LACTATED RINGER'S 1,000 ML IV SCH; +LIDOCAINE HCL 1% 5 ML SDV INJ ONE; +LIDOCAINE HCL 2% 5 ML SDV ONE; +METOPROLOL SUCC25 MG PO; +OMEPRAZOLE20 MG PO; +Ropivacaine HCl 0.5% 30 ML VIAL ONE; +SODIUM CHLORIDE 0.9% 20 ML IV ONE; +TRANEXAMIC ACID IN NACL,ISO-OS 1,000 MG/100 ML PIGGYBACK IV SCH; +propofoL 200 MG/20 ML VIAL ONE
[2024-11-12 09:54] VITALS: BP 171/83
[2024-11-12] MEDS ORDERED: LIDOCAINE HCL 2% 5 ML SDV ONE (11:19)
[2024-11-12] MEDS ORDERED: propofoL 200 MG/20 ML VIAL ONE (11:19)
[2024-11-12] MEDS ORDERED: ondansetron HCL 4 MG/2 ML VIAL ONE (12:10)
[2024-11-12] MEDS ORDERED: HYDROCODONE/ACETA 5/325 TAB PO PRN (12:30)
[2024-11-12] MEDS ORDERED: HYDROCODON-ACE1 EA10 PO (12:32)
--- NOTE | 2024-11-12 12:34 | NUR ---
11/12/24 Noemy Cruz OXYGEN SATURATION REMAINS 100% ON 6L VIA MASK. OXYGEN IS DISCONTINUED AT THIS TIME.
--- NOTE | 2024-11-12 12:48 | OR ---
[facility] [address] [place], [place] [address] Signed DATE OF OPERATION: 11/12/2024 SURGEON: Luis Manuel Sauer MD PREOPERATIVE DIAGNOSIS: Left distal radius fracture, displaced. POSTOPERATIVE DIAGNOSIS: Left distal radius fracture, displaced. PROCEDURE PERFORMED: Closed reduction, percutaneous pinning of left distal radius. MUSIC COMPOSITION TEACHER: None. ANESTHESIA: General. BLOOD LOSS: Minimal. IMPLANTS: Three 1.6 K-wires. BRIEF HISTORY: Martina is a 79-year-old female suffered a ground level fall fracturing her distal radius. This was displaced and partially reduced in the ER. Risks and benefits of operative treatment were discussed and she elected to proceed. DESCRIPTION OF PROCEDURE: Once consent was obtained she was taken to the operating room. After adequate anesthesia she was placed on the OR bed. The arm was prepped and draped in a standard sterile fashion and a closed reduction was performed under image intensifier guidance. A single K-wire was placed from the dorsal lip of the radius crossing the fracture and engaging the volar body. Two more placed from the radial styloid, maintaining the reduction. All three pins were then cut and bent. Final radiograph showed good reduction, pin placement and pin lengths. The pins were then dressed with Allevyn dressing. Sterile gauze and sterile cast padding and she was placed in a radial gutter splint. She tolerated the Electronically Signed By: LUIS MANUEL SAUER MD 11/12/24 1248 PATIENT NAME: MARTINA PATTERSON OPERATIVE REPORT DATE OF : 45 REPORT #: [id number] PHYSICIAN: LUIS MANUEL SAUER MD PCP: BRISEIDA KAUR DO REPORT IS CONFIDENTIAL AND NOT TO BE RELEASED WITHOUT AUTHORIZATION [address] [place] [address] Signed procedure well. All sponge, needle, and instrument counts correct. Luis Manuel Sauer MD BA/MODL /[id number] Copies: ~ Electronically Signed By: LUIS MANUEL SAUER MD 11/12/24 1248 PATIENT NAME: MARTINA PATTERSON OPERATIVE REPORT DATE OF : 45 REPORT #: [id number] PHYSICIAN: LUIS MANUEL SAUER MD PCP: BRISEIDA KAUR DO REPORT IS CONFIDENTIAL AND NOT TO BE RELEASED WITHOUT AUTHORIZATION
[2024-11-12 13:01] VITALS: BP 138/62
--- NOTE | 2024-11-12 13:01 | NUR ---
PT ARRIVED BACK TO DS ON RA, AAOX3, ANSWERING QUESTIONS APPROPRIATELY, AND ABLE TO MAKE HER NEEDS KNOWN. REPORT RECEIVED FROM CHIEF LIBRARIAN BRANCH OR DEPARTMENT. PT WITH SLING IN PLACE TO LUE WELL ICE TO SURGICAL SITE. SURGICAL DRSG VSUALIZED AND APPEARS CDI. VS TAKEN. IV SITE ASSESSED. PT DENIES PAIN OR NAUSEA WHEN ASKED. PT PROVIDED WITH PUDDING, KEISHA CRACKERS, AND ICE WATER. BED IN LOW POSITION, WHEELS LOCKED, BILAT RAILS IN PLACE. CALL LIGHT WITHIN PT REACH AND ALL QUESTIONS ANSWERED.
[2024-11-12] MEDS ORDERED: SEVOFLURANE 250 ML BTL INH ONE (13:55)
[2024-11-12 14:00] VITALS: BP 148/58
--- NOTE | 2024-11-12 14:00 | NUR ---
INTO PTS ROOM FOR ROUTINE REASSESSMENT. VS TAKEN. IV SL'D. PT TOLERATING PO FOOD AND FLUIDS WITHOUT ISSUES REPORTED/NOTED. PT CONT TO DENY PAIN OR NAUSEA WHEN ASKED. NO ACUTE CHANGES NOTED FROM PREVIOUS ASSESSMENT. PT REPORTING URGE TO VOID. IV SL'D AND PT ASSISTED TO RESTROOM DOWN CALL. PT ABLE TO VOID APPROX 300 ML OF CLR, YELLOW URINE. PT AMBULATED BACK TO HER ROOM AND PT WAS ASSISTED WITH DRSG FOR DISCHARGE.
--- NOTE | 2024-11-12 14:25 | NUR ---
IV REMOVED. TIP APPEARS INTACT. PRESSURE DRSG APPLIED WITH GAUZE AND COBAN. PT ASSISTED WITH PUTTING ON COAT AND SLING FITTED TO PT FOR LUE. SON NOTIFIED PT WILL BE READY FOR DISCHARGE IN APPROX 20-30 MINS. PT SITTING UP IN BED WITH CALL LIGHT WITHIN REACH. ICE WATER AND PERSONAL BELONGINGS WITHIN REACH.
--- NOTE | 2024-11-12 14:45 | NUR ---
INTO PTS ROOM FOR DC EDUCATION. PT GIVEN WRITTEN AND VERBAL INSTRUCTIONS WELL DR. HINSON AFTER HOURS PHONE NUMBER AND HER POST-OP F/U APPT FOR 11/22/24 AT 0945.
--- NOTE | 2024-11-12 14:55 | NUR ---
PT DISCHARGED FROM DS VIA WC TO PASSENGER SIDE OF HER SON'S VEHICLE. ALL QUESTIONS ANSWERED. ALL PERSONAL BELONGINGS TAKEN WITH PT.
--- NOTE | 2024-11-12 19:12 | EKG ---
[facility] [address] [facility] [place] [address] Signed Normal sinus rhythm Possible Left atrial enlargement Borderline ECG No previous ECGs available Confirmed by Elliott Tucker MD ([id number]) on 11/12/2024 7:12:29 PM Electronically Signed By: ELLIOTT TUCKER MD 11/12/241911 PATIENT NAME: SHALA PATTERSON Electrocardiogram DATE OF : 45 PHYSICIAN: ELLIOTT TUCKER MD REPORT #: [id number] REPORT IS CONFIDENTIAL AND NOT TO BE RELEASED WITHOUT AUTHORIZATION
== END 2024-11-12 14:55 | disposition home or self-care (01) ==
LOC: DS 09:14
PROVIDERS: ATTEND Specialist
PROC: 0PSJ34Z Reposition Left Radius with Internal Fixation Device, Percutaneous Approach (ICD-10-PCS; principal; 2024-11-12 12:15)
DX: S52.532A Colles' fracture of left radius, initial encounter for closed fracture (principal); I10 Essential (primary) hypertension; K21.9 Gastro-esophageal reflux disease without esophagitis; W18.30XA Fall on same level, unspecified, initial encounter
CPT/HCPCS: 01820; 64417; 93005; 93010; J0690; J1100; J2003; J2405; J2704; J2795; J7121